=== PATIENT | female | born 1990 | race African-American/Black ===

== ENCOUNTER → 2022-09-10 | Outpatient (CLI) | payer OTHER ==
[2022-09-10 19:22] LABS: Luteinizing Hormone 6.4 mIU/mL
[2022-09-10 19:23] LABS: Progesterone 0.2 ng/mL; Thyroid Peroxidase Antibodies 9.8 U/mL (0.0-33.0)
== END | disposition home or self-care (01) ==
LOC: LABWHC1 10:53
PROVIDERS: ATTEND Midwife
DX: N92.1 Excessive and frequent menstruation with irregular cycle (principal)
CPT/HCPCS: 36415; 83001; 83002; 84144; 84146; 84403; 84443; 86376; 86800

== ENCOUNTER 2022-12-12 14:19 | Emergency (ER) | payer BC, OTHER ==
[2022-12-12 14:30] VITALS: TEMP 98.6
[2022-12-12] MEDS ORDERED: SODIUM CHLORIDE 0.9% 500 ML 500 ML IV ONE (14:50)
--- NOTE | 2022-12-12 14:58 | ED ---
Female Urogenital HPI - General Chief complaint: Vaginal Bleeding Stated complaint: 13 weeks preg-bleeding Time Seen by Provider: 12/12/22 14:32 Source: patient, RN notes reviewed, old records reviewed Mode of arrival: ambulatory Limitations: no limitations - History of Present Illness Initial comments: This is a 32-year-old female to the emergency department for evaluation. Patient does have prior history of miscarriage. Patient denies any current abdominal pain. Recent vaginal bleeding of patient believes she is around 13 weeks . MD Complaint: vaginal bleeding (With ) -: hour(s) Location: suprapubic Radiation: non-radiating Severity: mild Severity scale (1-10): 3 Improves with: none Worsens with: none Patient : Yes Associated Symptoms: vaginal bleeding, abdominal pain - Related Data Allergies Allergy/AdvReac Type Severity Reaction Status Date / Time No Known Allergies Allergy Verified 12/12/22 14:30 Review of Systems ROS Statement: Those systems with pertinent positive or pertinent negative responses have been documented in the HPI. ROS Other: All systems not noted in ROS Statement are negative. Past Medical History Past Medical History: No Reported History History of Any Multi-Drug Resistant Organisms: None Reported Additional Past Surgical History / Comment(s): D&C 08/2021 Past Psychological History: Depression Smoking Status: Never smoker Past Alcohol Use History: None Reported Past Drug Use History: None Reported General Exam General appearance: alert, in no apparent distress Head exam: Present: atraumatic, normocephalic, normal inspection Eye exam: Present: normal appearance, PERRL, EOMI. Absent: scleral icterus, conjunctival injection, periorbital swelling ENT exam: Present: normal exam, mucous membranes moist Neck exam: Present: normal inspection. Absent: tenderness, meningismus, lymphadenopathy Respiratory exam: Present: normal lung sounds bilaterally. Absent: respiratory distress, wheezes, rales, rhonchi, stridor Cardiovascular Exam: Present: regular rate, normal rhythm, normal heart sounds. Absent: systolic murmur, diastolic murmur, rubs, gallop, clicks GI/Abdominal exam: Present: soft, normal bowel sounds. Absent: distended, tenderness, guarding, rebound, rigid Extremities exam: Present: normal inspection, full ROM, normal capillary refill. Absent: tenderness, pedal edema, joint swelling, calf tenderness Back exam: Present: normal inspection Neurological exam: Present: alert, oriented X3, CN II-XII intact Psychiatric exam: Present: normal affect, normal mood Skin exam: Present: warm, dry, intact, normal color. Absent: rash Course Vital Signs 12/12/22 12/12/22 12/12/22 14:25 14:41 17:25 Temperature 98.6 F Pulse Rate 108 H 115 H 94 Respiratory 16 20 18 Rate Blood Pressure 143/91 130/77 O2 Sat by Pulse 100 99 99 Oximetry - Reevaluation(s) Reevaluation #1: 12/12/22 16:54 Record is reviewed Reevaluation #2: 12/12/22 16:55 Patient has no change in symptoms here in the ER Reevaluation #3: 12/12/22 16:55 Informed results and questions are answered Reevaluation #4: 12/12/22 16:55 Was pt. sent in by a medical professional or institution? @ -no Did you speak to anyone other than the patient for history? @ -no Did you review nursing and triage notes? @ -agree Were old charts reviewed? @ -no Differential Diagnosis? @ -prior EKG interpreted by me (3pts min.)? @ -yes X-rays interpreted by me (1pt min.)? @ -no CT interpreted by me (1pt min.)? @ -no U/S interpreted by me (1pt. min.)? @ -yes What testing was considered but not performed? (CT, X-rays, U/S, labs)? Why? @ -no What meds were considered but not given? Why? @ -no Did you discuss the management of the patient with other professionals? @ -no Did you reconcile home meds? @ -no Was smoking cessation discussed for >3mins.? @ -no Was critical care preformed (if so, how long)? @ -no Were there social determinants of health that impacted care today? How? (Homelessness, low income, unemployed, alcoholism, drug addiction, transportation, low edu. Level, literacy, decrease access to med. care, retirement, rehab)? @ -no Was there de-escalation of care discussed even if they declined? (Discuss DNR or withdrawal of care, Hospice)? @ -no What co-morbidities impacted this encounter? (DM, HTN, Smoking, COPD, CAD, Cancer, CVA, Hep., AIDS, mental health diagnosis, sleep apnea, morbid obesity)? @ -none Was patient admitted / discharged? @ - Undiagnosed new problem with uncertain prognosis? @ -no Drug Therapy requiring intensive monitoring for toxicity (Heparin, Nitro, Insulin, Cardizem)? @ -no Were any procedures done? @ -no Diagnosis/symptom? @ -32 female with vaginal bleeding in . Patient has normal ultrasound, positive blood type and can be discharged home Discharge Acute, or Chronic, or Acute on Chronic? @ -no Uncomplicated (without systemic symptoms) or Complicated (systemic symptoms)? @ -uncomplicated Side effects of treatment? @ -no Exacerbation, Progression, or Severe Exacerbation] @ -no Poses a threat to life or bodily function? @ -no Reevaluation #5: 12/12/22 16:55 Differential Abdominal Pain Women: Appendicitis, Cholecystitis, diverticulosis, ischemic bowel, pancreatitis, hepatitis, UTI, gastroenteritis, AAA, incarcerated hernia, bowel obstruction, constipation, inflammatory bowel, hepatitis, peptic ulcer disease, splenic infarction, perforated viscus, vulvitis, ovarian torsion, PID, kidney stone, placenta abruption, this is not meant to be an all-inclusive list Medical Decision Making - Medical Decision Making 32 female with vaginal bleeding in . Patient has normal ultrasound, positive blood type and can be discharged home - Lab Data Result diagrams: 12/12/22 14:57 12/12/22 14:57 Lab Results 12/12/22 12/12/22 12/12/22 Range/Units 14:57 14:57 14:57 WBC 12.2 H (3.8-10.6) k/uL RBC 4.48 (3.80-5.40) m/uL Hgb 12.3 (11.4-16.0) gm/dL Hct 35.6 (34.0-46.0) % MCV 79.4 L (80.0-100.0) fL MCH 27.5 (25.0-35.0) pg MCHC 34.7 (31.0-37.0) g/dL RDW 13.2 (11.5-15.5) % Plt Count 282 (150-450) k/uL MPV 8.0 Neutrophils % 62 % Lymphocytes % 30 % Monocytes % 4 % Eosinophils % 3 % Basophils % 0 % Neutrophils # 7.6 (1.3-7.7) k/uL Lymphocytes # 3.7 (1.0-4.8) k/uL Monocytes # 0.5 (0-1.0) k/uL Eosinophils # 0.3 (0-0.7) k/uL Basophils # 0.0 (0-0.2) k/uL Sodium (137-145) mmol/L Potassium (3.5-5.1) mmol/L Chloride (98-107) mmol/L Carbon Dioxide (22-30) mmol/L Anion Gap mmol/L BUN (7-17) mg/dL Creatinine (0.52-1.04) mg/dL Est GFR (CKD-EPI)AfAm (>60 ml/min/1.73 sqM) Est GFR (CKD-EPI)NonAf (>60 ml/min/1.73 sqM) Glucose (74-99) mg/dL Calcium (8.4-10.2) mg/dL Total Bilirubin (0.2-1.3) mg/dL AST (14-36) U/L ALT (4-34) U/L Alkaline Phosphatase (38-126) U/L Total Protein (6.3-8.2) g/dL Albumin (3.5-5.0) g/dL HCG, Quant mIU/mL Urine Color Yellow Urine Appearance Cloudy H (Clear) Urine pH 6.0 (5.0-8.0) Ur Specific [place] 1.021 (1.001-1.035) Urine Protein 1+ H (Negative) Urine Glucose (UA) Negative (Negative) Urine Ketones Trace H (Negative) Urine Blood Large H (Negative) Urine Nitrite Negative (Negative) Urine Bilirubin Negative (Negative) Urine Urobilinogen <2.0 (<2.0) mg/dL Ur Leukocyte Esterase Trace H (Negative) Urine RBC 4 (0-5) /hpf Urine WBC 6 H (0-5) /hpf Ur Squamous Epith Cells 2 (0-4) /hpf Amorphous Sediment Rare H (None) /hpf Urine Mucus Moderate H (None) /hpf Urine HCG, Qual Detected (Not Detectd) Blood Type Blood Type Recheck Bld Type Recheck Status 12/12/22 12/12/22 12/12/22 Range/Units 14:57 14:57 14:57 WBC (3.8-10.6) k/uL RBC (3.80-5.40) m/uL Hgb (11.4-16.0) gm/dL Hct (34.0-46.0) % MCV (80.0-100.0) fL MCH (25.0-35.0) pg MCHC (31.0-37.0) g/dL RDW (11.5-15.5) % Plt Count (150-450) k/uL MPV Neutrophils % % Lymphocytes % % Monocytes % % Eosinophils % % Basophils % % Neutrophils # (1.3-7.7) k/uL Lymphocytes # (1.0-4.8) k/uL Monocytes # (0-1.0) k/uL Eosinophils # (0-0.7) k/uL Basophils # (0-0.2) k/uL Sodium 135 L (137-145) mmol/L Potassium 3.9 (3.5-5.1) mmol/L Chloride 104 (98-107) mmol/L Carbon Dioxide 21 L (22-30) mmol/L Anion Gap 10 mmol/L BUN 10 (7-17) mg/dL Creatinine 0.64 (0.52-1.04) mg/dL Est GFR (CKD-EPI)AfAm >90 (>60 ml/min/1.73 sqM) Est GFR (CKD-EPI)NonAf >90 (>60 ml/min/1.73 sqM) Glucose 115 H (74-99) mg/dL Calcium 9.5 (8.4-10.2) mg/dL Total Bilirubin 0.4 (0.2-1.3) mg/dL AST 26 (14-36) U/L ALT 20 (4-34) U/L Alkaline Phosphatase 46 (38-126) U/L Total Protein 6.9 (6.3-8.2) g/dL Albumin 4.0 (3.5-5.0) g/dL HCG, Quant 55139.8 mIU/mL Urine Color Urine Appearance (Clear) Urine pH (5.0-8.0) Ur Specific [place] (1.001-1.035) Urine Protein (Negative) Urine Glucose (UA) (Negative) Urine Ketones (Negative) Urine Blood (Negative) Urine Nitrite (Negative) Urine Bilirubin (Negative) Urine Urobilinogen (<2.0) mg/dL Ur Leukocyte Esterase (Negative) Urine RBC (0-5) /hpf Urine WBC (0-5) /hpf Ur Squamous Epith Cells (0-4) /hpf Amorphous Sediment (None) /hpf Urine Mucus (None) /hpf Urine HCG, Qual (Not Detectd) Blood Type A Positive Blood Type Recheck No Previous Record Bld Type Recheck Status [facility] ONLY - Radiology Data Radiology results: report reviewed (Ultrasound pelvis is positive for IUP), image reviewed Disposition Clinical Impression: Threatened Disposition: HOME SELF-CARE Condition: Good Instructions (If sedation given, give patient instructions): Threatened Miscarriage (ED) Is patient prescribed a controlled substance at d/c from ED?: No Referrals: None,Stated [Primary Care Provider] - 1-2 days Time of Disposition: 17:00
[2022-12-12 15:08] LABS: Basophils % (A) 0 %; Eosinophils # (A) 0.3 k/uL (0-0.7); Eosinophils % (A) 3 %; HCT 35.6 % (34.0-46.0); HGB 12.3 gm/dL (11.4-16.0); Lymphocytes # (A) 3.7 k/uL (1.0-4.8); Lymphocytes % (A) 30 %; MCH 27.5 pg (25.0-35.0); MCHC 34.7 g/dL (31.0-37.0); MCV 79.4 fL (80.0-100.0); Monocytes # (A) 0.5 k/uL (0-1.0); Monocytes % (A) 4 %; Neutrophils # (A) 7.6 k/uL (1.3-7.7); Neutrophils % (A) 62 %; Platelet Count 282 k/uL (150-450); RBC 4.48 m/uL (3.80-5.40); RDW 13.2 % (11.5-15.5); WBC 12.2 k/uL (3.8-10.6)
[2022-12-12 15:17] LABS: ALT 20 U/L (4-34); AST 26 U/L (14-36); African American GFR (CKD) >90 (>60 ml/min/1.73 sqM); Alkaline Phosphatase 46 U/L (38-126); Anion Gap 10 mmol/L; Blood Urea Nitrogen 10 mg/dL (7-17); Calcium 9.5 mg/dL (8.4-10.2); Carbon Dioxide 21 mmol/L (22-30); Chloride 104 mmol/L (98-107); Glucose 115 mg/dL (74-99); Non-African American GFR(CKD) >90 (>60 ml/min/1.73 sqM); Potassium 3.9 mmol/L (3.5-5.1); Sodium 135 mmol/L (137-145); Total Bilirubin 0.4 mg/dL (0.2-1.3); Total Protein 6.9 g/dL (6.3-8.2)
[2022-12-12 17:09] LABS: Amorphous Sediment,Urine Rare /hpf; Appearance,Urine Cloudy (Clear); Bilirubin,Urine Negative (Negative); Blood,Urine Large (Negative); Color,Urine Yellow; Glucose,Urine (UA) Negative (Negative); Ketones,Urine Trace (Negative); Leukocyte Esterase,Urine Trace (Negative); Mucus,Urine Moderate /hpf; Nitrite,Urine Negative (Negative); Protein,Urine 1+ (Negative); RBC,Urine 4 /hpf (0-5); Specific Gravity,Urine 1.021 (1.001-1.035); Squamous Epithelial Cell,Urine 2 /hpf (0-4); Urobilinogen,Urine <2.0 mg/dL (<2.0); WBC,Urine 6 /hpf (0-5)
--- NOTE | 2022-12-12 17:11 | US ---
EXAMINATION TYPE: Transabdominal DATE OF EXAM: 12/12/2022 4:31 PM COMPARISON: NONE CLINICAL INDICATION: Female, 32 years old with history of pain; gush of blood yesterday, now brown alfreda kelly, mild cramping, A3 EXAM PERFORMED: OBTA EXAM MEASUREMENTS: GESTATIONAL AGE / DATING Physician Established: Not yet established Dates by LMP: (14 weeks/2 days) EDC: 06/10/2023 Dates by First Scan: No previous this is first scan Dates by Current Scan for: (13 weeks/1 days) EDC: 06/18/2023 MATERNAL ANATOMY Uterus: 13.2 x 10.0 x 5.9cm Right Ovary: 3.3 x 4.0 x 2.6cm Left Ovary: 3.0 x 3.2 x 2.5cm Post CDS / Adnexa: wnl Presence of free fluid: wnl Presence of corpus luteal cyst: right ovary = 1.5cm Presence of subchorionic bleed: no GESTATION / SURVEY CRL: 6.8cm (13 weeks/1 days) MSD: wnl Yolk Sac (normal less than 6mm): not seen Heart Rate: 160 bpm Rhythm: Normal IUP: Viable IUP Date of LMP: 09/03/2022 Beta HcG (if available): not available IMPRESSION: Single live intrauterine gestation with ultrasound age 13 weeks 1 day which is discordant with dates by last menstrual period of 14 weeks 2 days.
[2022-12-12 17:27] VITALS: BP 130/77; PULSE 94; RESP 18
== END 2022-12-12 17:36 | disposition home or self-care (01) ==
LOC: EC 14:19
DX: O20.0 Threatened abortion (principal); Z3A.13 13 weeks gestation of pregnancy
CPT/HCPCS: 36415; 76801; 80053; 81001; 81025; 84702; 85025; 86900; 86901; 99284

== ENCOUNTER 2023-06-15 06:35 | Inpatient (IN) | payer BC, OTHER ==
[2023-06-15] MEDS ORDERED: LIDOCAINE 0.5% (PF) 5 MG/ML (50 ML SDV) SQ PRN (06:52)
[2023-06-15] MEDS ORDERED: CARBOPROST TROMETHAMINE 250 MCG/ML 1 ML AMP IM PRN (06:52)
[2023-06-15] MEDS ORDERED: miSOPROStoL 200 MCG TAB PO PRN (06:52)
[2023-06-15] MEDS ORDERED: TRANEXAMIC 1,000 MG/100ML-NACL 1,000 MG in EMPTY BAG 1 BAG IV PRN (06:52)
[2023-06-15] MEDS ORDERED: TERBUTALINE 1 MG/ML VIAL SQ PRN (06:52)
[2023-06-15] MEDS ORDERED: OXYTOCIN 10 UNIT/ML 1 ML VIAL IM PRN (06:52)
[2023-06-15] MEDS ORDERED: METHYLERGONOVINE 0.2 MG/ML 1 ML AMP IM PRN (06:52)
[2023-06-15] MEDS ORDERED: OXYTOCIN 30 UNITS/500 ML NS 30 UNIT in SALINE 1 500ML.BAG IV SCH (07:00)
[2023-06-15] MEDS: LACTATED RINGERS 1,000 ML IV SCH ×3 (07:00→20:22)
[2023-06-15 07:13] LABS: Basophils % (A) 0 %; Eosinophils # (A) 0.1 k/uL (0-0.7); Eosinophils % (A) 1 %; HCT 36.1 % (34.0-46.0); HGB 12.4 gm/dL (11.4-16.0); Lymphocytes # (A) 3.6 k/uL (1.0-4.8); Lymphocytes % (A) 38 %; MCH 26.4 pg (25.0-35.0); MCHC 34.4 g/dL (31.0-37.0); MCV 76.8 fL (80.0-100.0); Mean Platelet Volume 11.4; Microcytosis Slight; Monocytes # (A) 0.5 k/uL (0-1.0); Monocytes % (A) 5 %; Neutrophils % (A) 53 %; RBC 4.71 m/uL (3.80-5.40); RDW 15.8 % (11.5-15.5); WBC 9.4 k/uL (3.8-10.6)
[2023-06-15 08:00] LABS: Large Platelets Present
[2023-06-15 08:01] LABS: Platelet Count 227 k/uL (150-450)
[2023-06-15 08:24] LABS: Glucose,Whole Blood 101 mg/dL (70-110)
--- NOTE | 2023-06-15 08:46 | P.HPOB ---
History of Present Illness H&P Date: 06/15/23 Chief Complaint: 39-0/7 weeks, elective induction The patient is a 32-year-old 4 para 0030 admitted at 39-0/7 weeks as established by a 6 week ultrasound. She is admitted for elective induction of labor with all signs reassuring, category 1 heart rate tracing. Her has been complicated by a fair amount of weight gain as well as gestational diabetes which ultimately required some insulin but has maintained blood sugars in the normal range. testing has been reassuring throughout. Group B strep status is negative. Obstetrical history: 4 para 0030 with 2 elective and 1 spontaneous Ab. Current statistics are listed in history of present illness. EDC of 06/22/2023 was established by 6 week ultrasound. Laboratory workup done traits of blood type of A+ with a negative antibody screen. Rubella status is nonimmune. The remainder of the laboratory workup was within normal limits. Early Glucola was significantly elevated making the diagnosis of gestational diabetes. Group B strep status is negative. Gynecologic history: Unremarkable with no history of any infections to include STDs. Review of Systems In view of systems is confined to history of present illness. Past Medical History Past Medical History: No Reported History Additional Past Medical History / Comment(s): Gestational Diabetes History of Any Multi-Drug Resistant Organisms: None Reported Additional Past Surgical History / Comment(s): D&C 08/2021, baloon sinopathy Past Anesthesia/Blood Transfusion Reactions: No Reported Reaction Past Psychological History: No Psychological Hx Reported, Depression Smoking Status: Never smoker Past Alcohol Use History: None Reported Past Drug Use History: None Reported Medications and Allergies Home Medications Medication Instructions Recorded Confirmed Type Aspirin 81 mg PO DAILY 06/15/23 06/15/23 History Insulin Aspart Scale Rx Form 06/15/23 History [NovoLOG Outpatient Scale Rx Form] Insulin Degludec [Tresiba] 06/15/23 History Vit No.179/Iron/Folic 1 each PO 06/15/23 History [ Tablet] Allergies Allergy/AdvReac Type Severity Reaction Status Date / Time No Known Allergies Allergy Verified 06/15/23 06:49 Exam Intake and Output 06/14/23 06/15/23 06/15/23 22:59 06:59 14:59 Other: Weight 122.47 kg General, this is a well-developed, well-nourished -[place] woman in no acute distress. Her heart has a regular rhythm and rate without murmur. Her lungs are clear to auscultation bilaterally in all starr. Her abdomen is gravid, nondistended, has normal active bowel sounds, soft, nontender, and without any palpable masses aside from the uterine fundus. Her extremities are without any cyanosis, clubbing, or significant edema and are nontender to palpation bilaterally. Digital cervical examination demonstrates her cervix to be approximate 1 cm dilated, 50% effaced, with the vertex in presentation at -3 station. I'm unable to safely carry out artificial rupture of membranes at this time. Results Result Diagrams: 06/15/23 07:04 Abnormal Lab Results - Last 24 Hours (Table) 06/15/23 Range/Units 07:04 MCV 76.8 L (80.0-100.0) fL RDW 15.8 H (11.5-15.5) % Assessment and Plan (1) Term Current Visit: Yes Status: Acute Code(s): Z34.90 - ENCNTR FOR SUPRVSN OF NORMAL , UNSP, UNSP TRIMESTER SNOMED Code(s): 38088374 (2) Gestational diabetes Current Visit: Yes Status: Acute Code(s): O24.419 - GESTATIONAL DIABETES MELLITUS IN , UNSP CONTROL SNOMED Code(s): 17227678 Plan: The patient is admitted for elective induction of labor. We do suspect macrosomia with growth greater than 90th percentile in the third t rimester. She has had Pitocin started and will undergo artificial rupture of membranes at the earliest possible time. She will have close maternal and surveillance and expectant management will be practiced. Blood sugars will be monitored as necessary. She is a good candidate for either IV, epidural, or nitrous analgesia, whichever she may choose.
[2023-06-15 09:19] LABS: Glucose,Whole Blood 96 mg/dL (70-110)
[2023-06-15 10:41] LABS: Glucose,Whole Blood 87 mg/dL (70-110)
[2023-06-15 13:43] LABS: Glucose,Whole Blood 84 mg/dL (70-110)
[2023-06-15 17:07] LABS: Glucose,Whole Blood 163 mg/dL (70-110)
[2023-06-15] MEDS ORDERED: DINOPROSTONE 10 MG INSERT.ER VAGINAL ONE (18:30)
--- NOTE | 2023-06-15 19:29 | P.PN ---
Subjective Progress Note Date: 06/15/23 Principal diagnosis: 39-0/7 weeks, induction Patient was admitted this morning for Pitocin induction with a relatively unfavorable cervix. She had Pitocin running through the midafternoon and failed to make any significant cervical change. Objective - Vital Signs Vital signs: Intake & Output 06/15/23 06/15/23 06/16/23 06:59 18:59 06:59 Intake Total 1000 Balance 1000 Weight 122.47 kg Intake: IV 1000 Other: # Voids 3 - Exam Digital cervical examination on throughout the day demonstrate a cervix that was 1 cm dilated, approximately 50% effaced, with the vertex in presentation at -3 station. I was never able to safely effect artificial rupture of membranes. heart tones remained category 1 throughout the day. - Labs CBC & Chem 7: 06/15/23 07:04 Labs: Abnormal Lab Results - Last 24 Hours (Table) 06/15/23 06/15/23 Range/Units 07:04 17:04 MCV 76.8 L (80.0-100.0) fL RDW 15.8 H (11.5-15.5) % POC Glucose (mg/dL) 163 H (70-110) mg/dL Assessment and Plan (1) Term Current Visit: Yes Status: Acute Code(s): Z34.90 - ENCNTR FOR SUPRVSN OF NORMAL , UNSP, UNSP TRIMESTER SNOMED Code(s): 04195064 (2) Gestational diabetes Current Visit: Yes Status: Acute Code(s): O24.419 - GESTATIONAL DIABETES MELLITUS IN , UNSP CONTROL SNOMED Code(s): 15273371 Plan: After spending most of the day on Pitocin with no significant cervical change or descent, the situation was discussed with the patient and her . We ran through several scenarios and opted to hold Pitocin induction and proceed with Cervidil cervical ripening overnight and resume Pitocin induction tomorrow. Cervidil has been placed in the posterior vaginal fornix per protocol. The patient is aware of the risks and complications of cervical ripening which are primarily for uterine hyperstimulation. She will have her blood sugars rechecked given her gestational diabetes with insulin as needed. She has taken her evening insulin doses.
[2023-06-15 21:49] LABS: Glucose,Whole Blood 160 mg/dL (70-110)
[2023-06-16] MEDS: NALBUPHINE 10 MG/ML (10 ML MDV) IV PRN ×2 (01:48→09:41)
[2023-06-16] MEDS: LACTATED RINGERS 1,000 ML IV SCH ×4 (06:30→22:05)
[2023-06-16 06:59] LABS: Glucose,Whole Blood 110 mg/dL (70-110)
[2023-06-16 08:46] LABS: Glucose,Whole Blood 110 mg/dL (70-110)
[2023-06-16] MEDS ORDERED: SODIUM CHLORIDE 0.9% 250 ML BAG ONE (11:29)
[2023-06-16] MEDS ORDERED: fentaNYL (PF) 50 MCG/ML 5 ML AMP ONE (11:29)
[2023-06-16] MEDS ORDERED: ROPIVACAINE 5 MG/ML 30 ML VIAL ONE (11:29)
[2023-06-16 14:26] LABS: Glucose,Whole Blood 67 mg/dL (70-110)
[2023-06-16 16:51] LABS: Glucose,Whole Blood 64 mg/dL (70-110)
[2023-06-16 19:10] LABS: Glucose,Whole Blood 82 mg/dL (70-110)
[2023-06-16] MEDS ORDERED: miSOPROStoL 200 MCG TAB PO PRN (19:36)
[2023-06-16] MEDS ORDERED: CITRIC ACID-SODIUM CITRATE 15 ML CUP PO ONE (19:36)
[2023-06-16] MEDS ORDERED: TRANEXAMIC 1,000 MG/100ML-NACL 1,000 MG in EMPTY BAG 1 BAG IV PRN (19:36)
[2023-06-16] MEDS ORDERED: CARBOPROST TROMETHAMINE 250 MCG/ML 1 ML AMP IM PRN (19:36)
[2023-06-16] MEDS ORDERED: OXYTOCIN 10 UNIT/ML 1 ML VIAL IM PRN (19:36)
[2023-06-16] MEDS ORDERED: METHYLERGONOVINE 0.2 MG/ML 1 ML AMP IM PRN (19:36)
[2023-06-16] MEDS ORDERED: ceFAZolin 3 GM in SODIUM CHLORIDE 0.9% 100 ML IVPB ONE (19:45)
[2023-06-16] MEDS ORDERED: fentaNYL (PF) 50 MCG/ML 2 ML AMP ONE (19:56)
[2023-06-16] MEDS ORDERED: ONDANSETRON 4 MG/2 ML VIAL ONE (19:56)
[2023-06-16] MEDS ORDERED: OXYTOCIN 30 UNITS/500 ML NS BAG IV ONE (19:56)
[2023-06-16] MEDS ORDERED: KETOROLAC 30 MG/ML 1 ML VIAL ONE (19:56)
[2023-06-16] MEDS ORDERED: METOCLOPRAMIDE 5 MG/ML 2 ML VIAL IVP PRN (20:47)
[2023-06-16] MEDS ORDERED: KETOROLAC 15 MG/ML 1 ML VIAL IVP PRN (20:47)
[2023-06-16] MEDS ORDERED: diphenhydrAMINE 50 MG CAP PO PRN (20:47)
[2023-06-16] MEDS ORDERED: LANOLIN CREAM 5 GM TUBE TOPICAL PRN (20:47)
[2023-06-16] MEDS ORDERED: diphenhydrAMINE 25 MG CAP PO PRN (20:47)
[2023-06-16] MEDS ORDERED: ZOLPIDEM 5 MG TAB PO PRN (20:47)
[2023-06-16] MEDS ORDERED: ONDANSETRON 4 MG/2 ML VIAL IVP PRN (20:47)
[2023-06-16] MEDS ORDERED: diphenhydrAMINE 50 MG/ML 1 ML VIAL IVP PRN ×2 (20:47)
[2023-06-16] MEDS ORDERED: NALOXONE 0.4 MG/ML 1 ML VIAL IV PRN (20:47)
--- NOTE | 2023-06-16 20:57 | P.OP ---
Date of Procedure: 06/16/23 Preoperative Diagnosis: #1. 39 and one sevenths weeks intrauterine #2. Gestational diabetes #3. Suspected macrosomia #4. Arrest of dilation and descent Postoperative Diagnosis: Same Procedure(s) Performed: #1. Primary low-transverse section Anesthesia: epidural Surgeon: Sanjay Ibarra Mechanical Integrity Specialist #1: Chey Sanders Estimated Blood Loss (ml): 568 IV fluids (ml): 900 Urine output (ml): 150 Pathology: none sent Condition: stable Disposition: floor Operative Findings: Preoperatively, the patient was initially admitted for induction yesterday and had Pitocin running for the majority of the day with no significant change in cervix and no ability to perform artificial rupture of membranes. The Pitocin was stopped and the patient had a Cervidil placed overnight which did ripen her cervix effectively allowing for rupture of membranes this morning at which time she was 2 cm dilated. Artificial rupture of membranes was clear fluid. She had Pitocin started and made progress to approximately 3-1/2 cm over the next hour or 2 and had an epidural catheter placed for analgesia. The head never descended below -3 station and she remained at 3-4 cm for the entirety of the day today with no descent of the head. Given the suspicion for macrosomia, the patient was counseled and agreed to undergo primary low- transverse section. She was taken the operating room where she was delivered of a viable 9 lbs. 15 oz. baby girl with Apgars of 9 at 1 minute and 9 at 5 minutes in the occiput anterior position. The placenta was delivered manually, intact, and grossly normal with a grossly normal three-vessel cord. The uterus, tubes, and ovaries were entirely normal to inspection though there were several small subserosal fibroids scattered over the uterine fundus. Description of Procedure: The patient was prepped and draped in usual fashion after epidural anesthesia was bolused by the anesthesiologist. A Pfannenstiel incision was made and extended into the abdominal cavity without difficulty. The bladder peritoneum was significantly distal to the intended site of incision and was left intact. An incision was made approximately 2 cm wide in the transverse plane of the lower uterine segment to reenter the uterus at which time clear fluid was again noted. The incision was extended in both directions using the bandage scissors. The head was delivered up and through the incision where the nose and mouth were thoroughly suctioned. The remainder of the was delivered onto the field where the cord was doubly clamped, cut, and the infant passed for resuscitative measures with weight and Apgars as noted above. A segment of cord was doubly clamped, cut, and set aside should cord gases become necessary. The placenta was delivered manually and intact as noted above. The uterus was exteriorized and the interior cavity of the uterus swept of any remaining placental or membranous fragments. The margins of the uterine incision were grasped with Montgomery clamps and the incision closed in 2 layers. The first layer was a running locking stitch of 0 chromic catgut followed by a running imbricating layer of 0 chromic catgut. Any small points of bleeding were made hemostatic with the Bovie. The posterior cul-de-sac was suctioned with a guard followed by laparotomy sponge and the uterine and ovarian findings were normal as above with several small fibroids over the fundus. The uterus was replaced within the abdominal cavity and the gutters swept of any remaining blood, fluid, or clot. Examination of the incision demonstrated some bleeding at the right angle which was made hemostatic with a [id number]-ticdy stitch of 0 chromic catgut. Any further small points of bleeding were made hemostatic with the Bovie. After ensuring adequate hemostasis, the parietal peritoneum was loosely reapproximated in the layer of muscles examined and found to be hemostatic. The fascia was closed with a single running stitch of 0 Vicryl proceeding from margin to margin. The subcutaneous tissues were irrigated, made hemostatic with the Bovie, and reapproximated with a running stitch of 30 plain catgut. The skin was reapproximated with a running subcuticular stitch of 4-0 Vicryl followed by half-inch Steri-Strips placed with Mastisol. Quantitative blood loss for the case was 568 mL. There were no complications. All sponge, instrument, and needle counts were correct. The patient tolerated the procedure well and proceeded to the recovery room in stable condition. Both mother and in herminia are resting comfortably in recovery.
[2023-06-16] MEDS ORDERED: OXYTOCIN 30 UNITS/500 ML NS 30 UNIT in SALINE 1 500ML.BAG IV SCH (21:00)
[2023-06-16 21:37] VITALS: RESP 16
[2023-06-16] MEDS: ACETAMINOPHEN TAB 500 MG TAB PO SCH (22:01)
[2023-06-16] MEDS ORDERED: MEASLES-MUMPS-RUBELLA VACC/PF 12,500 UNIT/0.5 ML VIAL SQ ONE (23:45)
[2023-06-17 00:44] LABS: Glucose,Whole Blood 117 mg/dL (70-110)
[2023-06-17] MEDS: IBUPROFEN 600 MG TAB PO SCH ×4 (05:54→20:44)
[2023-06-17] MEDS: LACTATED RINGERS 1,000 ML IV SCH ×2 (05:55→20:35)
[2023-06-17] MEDS: ACETAMINOPHEN TAB 500 MG TAB PO SCH ×3 (06:06→18:08)
[2023-06-17 06:27] LABS: Glucose,Whole Blood 105 mg/dL (70-110)
[2023-06-17 07:33] LABS: Basophils % (A) 0 %; Eosinophils # (A) 0.1 k/uL (0-0.7); Eosinophils % (A) 1 %; HCT 25.3 % (34.0-46.0); Lymphocytes # (A) 2.7 k/uL (1.0-4.8); Lymphocytes % (A) 22 %; MCH 26.9 pg (25.0-35.0); Mean Platelet Volume 12.1; Microcytosis Slight; Monocytes # (A) 0.6 k/uL (0-1.0); Monocytes % (A) 5 %; Neutrophils # (A) 8.7 k/uL (1.3-7.7); Neutrophils % (A) 71 %; Platelet Count 171 k/uL (150-450); RBC 3.29 m/uL (3.80-5.40); RDW 15.9 % (11.5-15.5); WBC 12.2 k/uL (3.8-10.6)
[2023-06-17 07:39] LABS: HGB 8.9 gm/dL (11.4-16.0)
[2023-06-17] MEDS: SENNOSIDES-DOCUSATE SODIUM 1 EACH TAB PO SCH ×2 (08:59→20:45)
--- NOTE | 2023-06-17 10:38 | P.PN ---
Progress Note - Text 06/17/23 601 am 32-year-old female status post . Patient had an epidural catheter which was bolused with Duramorph after the procedure for postop pain control. Patient was seen and evaluated, she has a VAS of 0 with no complaints of nausea vomiting
--- NOTE | 2023-06-17 11:03 | P.PNOBGPC ---
Subjective - Subjective Patient reports: Reports appetite normal, Reports voiding normally, Reports pain well controlled, Reports ambulating normally : doing well Objective - Vital Signs Latest vital signs: Vital Signs Temp Pulse Resp BP Pulse Ox 06/17/23 08:00 98.9 F 105 H 16 104/68 06/17/23 04:00 98.1 F 99 16 115/70 100 06/17/23 00:00 98.0 F 79 16 128/76 100 06/16/23 22:50 98.6 F 96 16 141/86 06/16/23 22:20 91 16 137/81 100 06/16/23 21:50 94 16 137/81 100 06/16/23 21:35 93 16 140/78 100 06/16/23 21:20 88 16 126/74 97 06/16/23 21:05 85 16 140/77 97 06/16/23 20:50 98.1 F 88 16 137/91 100 Intake and Output 06/16/23 06/17/23 06/17/23 22:59 06:59 14:59 Output Total 1056 400 Balance -1056 -400 Output: Urine 200 400 Uretheral (Crook) 400 Output, Quantitative 856 Blood Loss Other: Voiding Method Indwelling Catheter Indwelling Catheter # Voids 3 0 - Exam Extremities: Present: normal Abdomen: Present: normal appearance, soft. Absent: distention, tenderness Incision: Present: normal, dry, intact Uterus: Present: normal, firm (The uterine fundus is tonic and minimally tender below the umbilicus.) - Labs Labs: Abnormal Lab Results - Last 24 Hours (Table) 06/16/23 06/16/23 06/17/23 Range/Units 14:25 16:49 00:43 WBC (3.8-10.6) k/uL RBC (3.80-5.40) m/uL Hgb (11.4-16.0) gm/dL Hct (34.0-46.0) % MCV (80.0-100.0) fL RDW (11.5-15.5) % Neutrophils # (1.3-7.7) k/uL POC Glucose (mg/dL) 67 L 64 L 117 H (70-110) mg/dL 06/17/23 Range/Units 07:20 WBC 12.2 H (3.8-10.6) k/uL RBC 3.29 L (3.80-5.40) m/uL Hgb 8.9 L D (11.4-16.0) gm/dL Hct 25.3 L (34.0-46.0) % MCV 77.0 L (80.0-100.0) fL RDW 15.9 H (11.5-15.5) % Neutrophils # 8.7 H (1.3-7.7) k/uL POC Glucose (mg/dL) (70-110) mg/dL Assessment and Plan (1) Term Current Visit: Yes Status: Acute Code(s): Z34.90 - ENCNTR FOR SUPRVSN OF NORMAL , UNSP, UNSP TRIMESTER SNOMED Code(s): 01678925 (2) Gestational diabetes Current Visit: Yes Status: Acute Code(s): O24.419 - GESTATIONAL DIABETES MELLITUS IN , UNSP CONTROL SNOMED Code(s): 96981322 (3) S/P section Current Visit: Yes Status: Acute Code(s): Z98.891 - HISTORY OF UTERINE SCAR FROM PREVIOUS SURGERY SNOMED Code(s): 501009153 Plan: Continue routine and postoperative care. I have encouraged the patient and the hallways routinely. She is otherwise tolerating regular diet and performing activities of daily living. I would anticipate discharge home tomorrow pending no complications.
[2023-06-17 17:46] VITALS: TEMP 98
[2023-06-18] MEDS: ACETAMINOPHEN TAB 500 MG TAB PO SCH ×3 (00:05→11:51)
[2023-06-18 02:54] VITALS: PULSE 97
[2023-06-18] MEDS: IBUPROFEN 600 MG TAB PO SCH ×3 (03:16→15:09)
[2023-06-18 08:49] VITALS: BP 127/74
[2023-06-18] MEDS: SENNOSIDES-DOCUSATE SODIUM 1 EACH TAB PO SCH (09:12)
--- NOTE | 2023-06-18 10:18 | P.DS ---
Providers Date of admission: 06/15/23 06:35 Expected date of discharge: 06/18/23 Attending physician: Sanjay Ibarra Primary care physician: Stated None - Discharge Diagnosis(es) (1) Arrest of descent, delivered, current hospitalization Current Visit: Yes Status: Acute (2) macrosomia in Current Visit: Yes Status: Acute (3) Gestational diabetes Current Visit: Yes Status: Acute (4) S/P section Current Visit: Yes Status: Acute (5) Term Current Visit: Yes Status: Acute Hospital Course: This is a 32 year old 4 now para 1031 woman admitted at 39 weeks gestation for induction of labor secondary to insulin requiring gestational diabetes and suspected macrosomia. Following admission she underwent a Pitocin induction of labor. This was continued for several hours with no signs of active labor. Pitocin was therefore stopped and Cervidil was introduced. Following morning Pitocin was reinitiated and artificial rupture of membranes was undertaken. She did receive an epidural anesthetic. She however did not have any further ongoing descent or dilatation and ultimately underwent a primary low transverse section. Findings at the time of surgery significant for a 9 lbs. 15 oz. female infant with Apgars of 9 at 1 minute and 9 at 5 minutes. Please see the operative report for details. The patient's postoperative course was unremarkable. By postoperative day #1 she did have some postoperative anemia with a hemoglobin of 8.9. She had decreasing lochia and was able to ambulate and void without difficulty. By postoperative day #2 she continued to do well. Her blood sugars were within normal range as were her blood pressures. She was tolerating a general diet and her pain was well- controlled with oral pain medications. Her incision appeared well healing. She was therefore discharged home with routine instructions for postoperative care and follow-up. Procedures: Primary low transverse section Patient Condition at Discharge: Good Plan - Discharge Summary New Discharge Prescriptions: New Ibuprofen [Motrin] 600 mg PO Q6H tab oxyCODONE HCL [OxyIR] 10 mg PO Q6H PRN 7 Days #28 tab PRN Reason: Pain Scale 7 - 10 Sennosides-Docusate Sodium [Senokot-S] 2 each PO BID@0800,2000 tab Acetaminophen Tab [Tylenol] 1,000 mg PO Q6H tab Discontinued Insulin Degludec [Tresiba] Insulin Aspart Scale Rx Form [NovoLOG Outpatient Scale Rx Form] No Action Vit No.179/Iron/Folic [ Tablet] 1 each PO Aspirin 81 mg PO DAILY Discharge Medication List Aspirin 81 mg PO DAILY 06/15/23 [History] Vit No.179/Iron/Folic [ Tablet] 1 each PO 06/15/23 [History] Acetaminophen Tab [Tylenol] 1,000 mg PO Q6H tab 06/18/23 [Rx] Ibuprofen [Motrin] 600 mg PO Q6H tab 06/18/23 [Rx] Sennosides-Docusate Sodium [Senokot-S] 2 each PO BID@0800,2000 tab 06/18/23 [Rx] oxyCODONE HCL [OxyIR] 10 mg PO Q6H PRN 7 Days #28 tab 06/18/23 [Rx] Follow up Appointment(s)/Referral(s): Sanjay Ibarra MD [STAFF PHYSICIAN] - 1 Week Activity/Diet/Wound Care/Special Instructions: Follow-up in 2 weeks after surgery in the office. Call the office with any concerning signs or symptoms including fever greater than 101, severe abdominal pain, heavy vaginal bleeding, signs of wound infection, increased swelling or redness of the lower extremities, signs of depression. No driving for 2 weeks after surgery. No heavy lifting or vigorous activity until reevaluated in the office. No intercourse for 6 weeks after delivery. Discharge Disposition: HOME SELF-CARE
--- NOTE | 2023-06-23 10:46 | CDI ---
Documentation Clarification Form Date: 06/23/2023 09:54:30 AM From: Brittani Hines Admit Date: 06/15/2023 06:35:00 AM Patient Name: Joseline Ruiz Visit Number: [id number] Discharge Date: 06/18/2023 03:58:00 PM ATTENTION: The Clinical Documentation Specialists (CDI) and [facility] Coding Staff appreciate your assistance in clarifying documentation. Please respond to the clarification below the line at the bottom and electronically sign. The CDI & [facility] Coding staff will review the response and follow-up if needed. Please note: Queries are made part of the Legal Health Record. If you have any questions, please contact the author of this message via ITS. Dr. Sanjay Ibarra Postoperative anemia is documented in the discharge summary 06/[address] Bobby. Additional specificity regarding the type and acuity of anemia is requested. History/Risk Factors: patient is a 32 year old 4 para 1031 admitted at 39 weeks gestation for induction of labor secondary to insulin requiring gestational diabetes and suspected macrosomia. Clinical indicators: patient underwent a Pitocin induction of labor, then proceeded with Cervidil. Pitocin was again reinitiated followed by AROM and Epidural. She failed to have any further ongoing descent or dilation and ultimately underwent a primary low transverse C/S. EBL 568 mL. No complications, she did have some postoperative anemia with a hemoglobin of 8.9. She had decreasing lochia and continued to do well. Hemoglobin: 06/15 12.4, 06/17 8.9 Hematocrit: 06/15 36.1, 06/17 25.3 Treatment: routine and postoperative care Please clarify the type and acuity of anemia: [ ] Acute blood loss anemia [ x ] Not clinically significant [ ] Unable to determine [ ] Other, please specify _Every delivery will have this type of blood loss and these queries aren't necessary in this particular scenario. MTDD
== END 2023-06-18 15:58 | disposition home or self-care (01) | DRG 788 ==
LOC: 4FBP 06:35
PROVIDERS: ADMIT Obstetrics & Gynecology; ATTEND Obstetrics & Gynecology
PROC: 10D00Z1 Extraction of Products of Conception, Low, Open Approach (ICD-10-PCS; principal; 2023-06-16 20:26)
DX: O24.424 Gestational diabetes mellitus in childbirth, insulin controlled (principal); D25.2 Subserosal leiomyoma of uterus; O34.13 Maternal care for benign tumor of corpus uteri, third trimester; O36.63X0 Maternal care for excessive fetal growth, third trimester, not applicable or unspecified; O62.1 Secondary uterine inertia; O99.02 Anemia complicating childbirth; Z37.0 Single live birth; Z3A.39 39 weeks gestation of pregnancy; Z79.82 Long term (current) use of aspirin
CPT/HCPCS: 85025; 86850; 86900; 86901

== ENCOUNTER → 2023-09-07 | Outpatient (CLI) | payer BC | END | disposition home or self-care (01) | LOC: LABWHC1 13:00 | PROVIDERS: ATTEND Internal Medicine Endocrinology, Diabetes & Metabolism | DX: E11.9 Type 2 diabetes mellitus without complications (principal) | CPT/HCPCS: 36415; 83036 ==

== ENCOUNTER → 2024-03-28 | Outpatient (CLI) | payer BC ==
[2024-03-28 22:35] LABS: ALT 16 U/L (8-44); AST 17 U/L (13-35); Albumin 4.2 g/dL (3.8-4.9); Albumin/Globulin Ratio 1.75 Ratio (1.60-3.17); Alkaline Phosphatase 67 U/L (41-126); BUN/Creat Ratio 12.62 Ratio (12.00-20.00); Blood Urea Nitrogen 10.1 mg/dL (9.0-27.0); Calcium 9.4 mg/dL (8.7-10.3); Carbon Dioxide 21.5 mmol/L (21.6-31.8); Chloride 102 mmol/L (96-109); Chol/HDL Ratio 2.72 Ratio; Globulin 2.4 g/dL (1.6-3.3); Glucose 143 mg/dL (70-110); LDL Cholesterol,Calculated 97.2 mg/dL (0.0-131.0); Potassium 4.5 mmol/L (3.5-5.5); Sodium 135 mmol/L (135-145); Total Bilirubin 0.4 mg/dL (0.3-1.2); Total Protein 6.6 g/dL (6.2-8.2)
== END | disposition home or self-care (01) ==
LOC: LABWHC1 10:21
PROVIDERS: ATTEND Internal Medicine Endocrinology, Diabetes & Metabolism
DX: E11.9 Type 2 diabetes mellitus without complications (principal)
CPT/HCPCS: 36415; 80053; 80061; 82043; 82570; 83036; 84443

== ENCOUNTER 2024-11-02 10:10 | Inpatient (IN) | payer BC ==
[2024-11-02 10:23] LABS: Glucose,Whole Blood 100 mg/dL (70-110)
[2024-11-02] MEDS ORDERED: OXYTOCIN 30 UNITS/500 ML NS 30 UNIT in SALINE 1 500ML.BAG IV SCH (10:45)
[2024-11-02] MEDS ORDERED: METHYLERGONOVINE 0.2 MG/ML 1 ML AMP IM PRN (10:45)
[2024-11-02] MEDS ORDERED: TRANEXAMIC 1,000 MG/100ML-NACL 1,000 MG in EMPTY BAG 1 BAG IV PRN (10:45)
[2024-11-02] MEDS ORDERED: miSOPROStoL 200 MCG TAB PO PRN (10:45)
[2024-11-02] MEDS ORDERED: CARBOPROST TROMETHAMINE 250 MCG/ML 1 ML AMP IM PRN (10:45)
[2024-11-02] MEDS ORDERED: OXYTOCIN 10 UNIT/ML 1 ML VIAL IM PRN (10:45)
--- NOTE | 2024-11-02 10:59 | P.HPOB ---
History of Present Illness H&P Date: 11/02/24 Chief Complaint: 38+ weeks, previous section, GDM, repeat The patient is a 34-year-old 5 para 1-0-3-1 admitted at 38+ weeks as established by an 11-week ultrasound. She is admitted for repeat low-transverse section having undergone a previous section. Her has been complicated by gestational diabetes and possibly pregestational diabetes she has had reassuring testing on a weekly basis since 32 weeks. She is known to have a large for gestational age fetus. She has also been found to be rubella nonimmune. Group B strep status is negative. On labor delivery, all signs are reassuring with a category 1 heart rate tracing. Obstetrical history: 5 para 1-0-3-1 with 1 term section as noted above. Current statistics are listed in history of present illness. EDC of 11/13/2024 was established by an 11-week ultrasound. Laboratory workup demonstrates a blood type of A+ with a negative antibody screen. Rubella status is nonimmune. The remainder of the laboratory workup was within normal limits. The patient was treated as a diabetic throughout the as she was thought to be pregestational a diabetic. Group B strep status is negative. Gynecologic history: Unremarkable with no history of any infections to include STDs. Review of Systems Review of systems is confined to history of present illness. Past Medical History Past Medical History: No Reported History Additional Past Medical History / Comment(s): Gestational Diabetes History of Any Multi-Drug Resistant Organisms: None Reported Additional Past Surgical History / Comment(s): D&C 08/2021, baloon sinopathy Past Anesthesia/Blood Transfusion Reactions: No Reported Reaction Past Psychological History: No Psychological Hx Reported, Depression Smoking Status: Never smoker Past Alcohol Use History: None Reported Past Drug Use History: None Reported Medications and Allergies Home Medications Medication Instructions Recorded Confirmed Type Aspirin 81 mg PO DAILY 06/15/23 11/02/24 History Vit No.179/Iron/Folic 1 each PO DAILY 06/15/23 11/02/24 History [ Tablet] Acetaminophen Tab [Tylenol] 1,000 mg PO Q6H tab 06/18/23 11/02/24 Rx Insulin Aspart [NovoLOG] 10 - 14 units SQ ACHS 11/02/24 11/02/24 History Insulin Degludec [Tresiba] 20 - 40 units SQ DAILY 11/02/24 11/02/24 History Allergies Allergy/AdvReac Type Severity Reaction Status Date / Time No Known Allergies Allergy Verified 11/02/24 10:36 Exam Intake and Output 11/01/24 11/02/24 11/02/24 22:59 06:59 14:59 Other: Weight 130.181 kg In general, this is a well-developed black female in no acute distress. Her heart has a regular rhythm and rate without murmur. Her lungs are clear to auscultation bilateral in all starr. Her abdomen is gravid, nondistended, has normal active bowel sounds, soft, nontender, and without any palpable masses aside from uterine fundus. Her extremities are without any cyanosis, clubbing, or significant edema and are nontender to palpation bilaterally. Digital cervical examination is deferred. Assessment and Plan (1) Previous section Current Visit: Yes Status: Acute Code(s): Z98.891 - HISTORY OF UTERINE SCAR FROM PREVIOUS SURGERY SNOMED Code(s): 130924799 (2) macrosomia in Current Visit: No Status: Acute Code(s): O36.60X0 - MATERNAL CARE FOR EXCESS GROWTH, UNSP TRIMESTER, UNSP SNOMED Code(s): 06893067 (3) Gestational diabetes Current Visit: No Status: Acute Code(s): O24.419 - GESTATIONAL DIABETES MELLITUS IN , UNSP CONTROL SNOMED Code(s): 38357487 (4) Term Current Visit: No Status: Acute Code(s): Z34.90 - ENCNTR FOR SUPRVSN OF NORMAL , UNSP, UNSP TRIMESTER SNOMED Code(s): 87133854 Plan: The patient is admitted for repeat low-transverse section. The risks and complications have been discussed and she has understood and agreed to proceed.
[2024-11-02] MEDS: CITRIC ACID-SODIUM CITRATE 15 ML CUP PO ONE (11:07)
[2024-11-02] MEDS: LACTATED RINGERS 1,000 ML IV SCH (11:07)
[2024-11-02] MEDS: ceFAZolin 3 GM in SODIUM CHLORIDE 0.9% 100 ML IVPB ONE (11:12)
[2024-11-02 11:29] LABS: Basophils # (A) 0.02 10*3/uL (0.00-0.10); Basophils % (A) 0.2 %; Eosinophils # (A) 0.08 10*3/uL (0.04-0.35); Eosinophils % (A) 0.8 %; HCT 36.8 % (37.2-46.3); HGB 12.6 g/dL (12.0-15.0); Lymphocytes % (A) 24.4 %; MCH 25.7 pg (27.0-32.0); MCHC 34.2 g/dL (32.0-37.0); MCV 74.9 fL (80.0-97.0); Monocytes # (A) 0.65 10*3/uL (0.20-1.00); Monocytes % (A) 6.3 %; Neutrophils # (A) 6.95 10*3/uL (1.80-7.70); Neutrophils % (A) 67.8 %; Platelet Count 233 10*3/uL (140-440); RBC 4.91 10*6/uL (4.10-5.20); RDW 16.4 % (11.5-14.5); WBC 10.25 10*3/uL (4.50-10.00)
[2024-11-02] MEDS ORDERED: NALBUPHINE (ANES) 10 MG/ML - 1 ML AMP ONE (11:29)
[2024-11-02] MEDS ORDERED: MORPHINE SULFATE (PF) 0.3 MG/0.3 ML SYR ONE (11:29)
[2024-11-02] MEDS ORDERED: KETOROLAC 15 MG/ML 1 ML VIAL ONE (11:29)
[2024-11-02] MEDS ORDERED: ONDANSETRON 4 MG/2 ML VIAL ONE (11:29)
[2024-11-02] MEDS ORDERED: LANOLIN CREAM 1 GM TUBE TOPICAL PRN (12:22)
[2024-11-02] MEDS ORDERED: NALOXONE 0.4 MG/ML 1 ML VIAL IV PRN (12:22)
[2024-11-02] MEDS ORDERED: ONDANSETRON 4 MG/2 ML VIAL IVP PRN (12:22)
[2024-11-02] MEDS ORDERED: diphenhydrAMINE 50 MG/ML 1 ML VIAL IVP PRN ×2 (12:22)
[2024-11-02] MEDS ORDERED: ZOLPIDEM 5 MG TAB PO PRN (12:22)
[2024-11-02] MEDS ORDERED: METOCLOPRAMIDE 5 MG/ML 2 ML VIAL IVP PRN (12:22)
--- NOTE | 2024-11-02 12:32 | P.OP ---
Date of Procedure: 11/02/24 Preoperative Diagnosis: #1. 38-3/7 weeks, previous section #2. Gestational diabetes #3. Suspected macrosomia Postoperative Diagnosis: Same Procedure(s) Performed: #1. Repeat low-transverse section #2. Excision and revision of scar Anesthesia: spinal Surgeon: Sanjay Ibarra Finish Off Operator #1: Emma Garrido Estimated Blood Loss (ml): 512 IV fluids (ml): 1,000 Urine output (ml): 100 Pathology: none sent Condition: stable Disposition: floor Operative Findings: Patient was taken to the operating room where she was delivered in an uncomplicated fashion of a viable 10 pound 2 ounce baby girl with Apgars of 9 at 1 minute and 9 at 5 minutes delivered in the occiput anterior position. The placenta was delivered manually, intact, and grossly normal with a grossly normal three-vessel cord. The uterus, tubes, and ovaries were entirely normal to inspection. At the onset of the case, there was a large keloid scar from her previous incision which was excised and discarded. Description of Procedure: Was prepped and draped in usual fashion after spinal anesthesia was administered by the anesthesiologist. A Pfannenstiel incision was made underneath the pre- existing scar allowing the overlying keloid to be excised with a scalpel. The incision was then extended into the abdominal cavity without difficulty. The bladder peritoneum was significantly distal to the intended site of incision and was left intact. A 2 cm incision was made in the transverse plane of the lower uterine segment to enter the uterus at which time clear fluid was noted. The incision was extended both directions using the bandage scissors. The head was delivered up and through the incision where the nose and mouth were thoroughly suctioned. The remainder of the infant was delivered onto the field where the cord was doubly clamped, cut, and the infant passed for resuscitative measures with weight and Apgars as noted above. The placenta was delivered manually and intact as noted above. The uterus was exteriorized and the anterior cavity uterus swept of any remaining placental or membranous fragments. The margins of the uterine incision were grasped with Montgomery clamps. The incision was closed in a single running locking stitch of 0 chromic catgut from margin to margin. 1 small point of bleeding was noted in the midline where a sinus had been previously noted and was made hemostatic with a single afqfbb-os-pbolk stitch of 0 chromic catgut. The posterior cul-de-sac was suctioned with a guard followed by laparotomy sponge. The uterine and ovarian findings were normal as noted above. The uterus was replaced within the abdominal cavity and the gutters swept with any remaining blood, fluid, or clot. Reexamination of the uterine incision demonstrated excellent hemostasis. The parietal peritoneum was loosely reapproximated and the layer of muscles examined and found to be hemostatic. The fascia was closed with a single running stitch of 0 Vicryl proceeding from margin to margin. The subcutaneous tissues were irrigated, made hemostatic with the Bovie, and then reapproximated with a running stitch of 3-0 plain catgut. The skin was reapproximated with a running subcuticular stitch of 4-0 Monocryl followed by half-inch Steri-Strips placed with Mastisol. Quantitative blood loss for the case was 512 mL. There were no complications. All sponge, instrument, and needle counts were correct. The patient tolerated the procedure well and proceeded to the recovery room in stable condition. Both mother and infant are resting comfortably in recovery. A physician instructor adjunct surgical technician was utilized for the entire procedure due to the need for tissue retraction, dissection of vital structures, prevention and management of blood loss, and reduction in total operative time and anesthesia time as is the standard of care.
[2024-11-02] MEDS: ACETAMINOPHEN TAB 500 MG TAB PO SCH (17:13)
[2024-11-02] MEDS: KETOROLAC 15 MG/ML 1 ML VIAL IVP SCH (20:09)
[2024-11-02] MEDS: SENNOSIDES-DOCUSATE SODIUM 1 EACH TAB PO SCH (20:11)
[2024-11-02] MEDS: diphenhydrAMINE 25 MG CAP PO PRN (22:05)
[2024-11-03 06:25] LABS: Basophils # (A) 0.03 10*3/uL (0.00-0.10); Basophils % (A) 0.2 %; Eosinophils # (A) 0.17 10*3/uL (0.04-0.35); Eosinophils % (A) 1.4 %; HCT 29.2 % (37.2-46.3); HGB 10.3 g/dL (12.0-15.0); Lymphocytes # (A) 3.43 10*3/uL (0.90-5.00); Lymphocytes % (A) 27.9 %; MCH 26.7 pg (27.0-32.0); MCHC 35.3 g/dL (32.0-37.0); MCV 75.6 fL (80.0-97.0); Mean Platelet Volume 12.4 fL (9.5-12.2); Monocytes # (A) 0.98 10*3/uL (0.20-1.00); Neutrophils # (A) 7.65 10*3/uL (1.80-7.70); Neutrophils % (A) 62.1 %; Platelet Count 197 10*3/uL (140-440); RBC 3.86 10*6/uL (4.10-5.20); WBC 12.31 10*3/uL (4.50-10.00)
[2024-11-03] MEDS: diphenhydrAMINE 50 MG CAP PO PRN (08:00)
--- NOTE | 2024-11-03 08:24 | P.PNOBGPC ---
Subjective - Subjective Principal diagnosis: s/p scheduled repeat section Interval history: The patient is doing well this morning and had no acute events overnight. She has no complaints this morning. She reports minimal lochia, passing flatus, voiding without difficulty, ambulating, and eating/drinking without nausea or vomiting. She is her without difficulty. She denies chest pain, shortness of breathing, fevers, or chills overnight. She denies pain or swelling in the legs. The patient does complain of itching from the duramorph. Patient reports: Reports appetite normal, Reports voiding normally, Reports pain well controlled, Reports ambulating normally : doing well, nursing well Objective - Vital Signs Latest vital signs: Vital Signs Temp Pulse Resp BP Pulse Ox 11/03/24 00:00 98 F 72 18 132/78 98 11/02/24 20:00 97.8 F 67 18 113/77 98 11/02/24 15:44 95.7 F L 75 16 121/68 98 11/02/24 14:28 95.8 F L 78 18 132/71 98 11/02/24 14:13 95.8 F L 79 18 122/99 98 11/02/24 13:58 95.8 F L 83 16 131/68 98 11/02/24 13:43 79 18 124/72 98 11/02/24 13:28 96.1 F L 78 18 124/70 98 11/02/24 13:13 95.6 F L 96 16 110/62 97 11/02/24 12:58 90 18 113/63 11/02/24 12:43 80 18 108/59 98 11/02/24 12:28 95.6 F L 84 16 102/51 97 11/02/24 10:22 95.5 F L 105 H 20 140/91 100 Intake and Output 11/02/24 11/03/24 11/03/24 22:59 06:59 14:59 Output Total 200 Balance -200 Output: Urine 200 Uretheral (Crook) 200 Other: Voiding Method Indwelling Catheter # Voids 1 - Exam Extremities: Present: normal Abdomen: Present: normal appearance, soft Incision: Present: normal, dry, dressed Uterus: Present: normal, firm - Labs Labs: Abnormal Lab Results - Last 24 Hours (Table) 11/02/24 11/03/24 Range/Units 10:52 06:13 WBC 10.25 H 12.31 H (4.50-10.00) 10*3/uL RBC 3.86 L (4.10-5.20) 10*6/uL Hgb 10.3 L (12.0-15.0) g/dL Hct 36.8 L 29.2 L (37.2-46.3) % MCV 74.9 L 75.6 L (80.0-97.0) fL MCH 25.7 L 26.7 L (27.0-32.0) pg MPV 12.4 H (9.5-12.2) fL Immature Gran # 0.05 H 0.05 H (0.00-0.04) 10*3/uL Immature Plt Fraction 8.0 H (1.1-6.1) % Assessment and Plan Assessment: 34 year old now POD#1 s/p scheduled repeat section Plan: 1. Postoperative. Patient meeting all post-operative milestones appropriately. 2. Viable female infant. Doing well at bedside, nursing well. Dispo: Anticipate discharge home tomorrow.
--- NOTE | 2024-11-03 09:42 | P.PN ---
Progress Note - Text Progress Note Date: 11/03/24 (716) Anesthesia Postop day 1 Subjective: Status Post section with Duramorph. Patient seen and examined. Doing well without complaint. VAS 8 out of 10. States tolerable. No nausea or vomiting. Moderate pruritus. Denies fever. Gross lower extremity strength intact. Without apparent anesthetic complications. Objective: Vital signs reviewed Heart: Regular Rate Lungs: Good chest excursion Abdomen: Appears nondistended Assessment: Status post section with Duramorph postop day 1 Plan: 1. Continue current care with your medical management. Anticipated end to the duration of the Duramorph around surgery time today. You may see increased pain needs around this time. 2. This note was dictated using ImageBrief software. Please be advised there is a potential for misspellings or errors in paving crew foreman.
[2024-11-03] MEDS: IBUPROFEN 800 MG TAB PO SCH (19:43)
[2024-11-04] MEDS: SIMETHICONE 80 MG CHEWABLE PO PRN (02:35)
[2024-11-04 09:21] VITALS: BP 148/84; PULSE 98; RESP 20; TEMP 98.2
--- NOTE | 2024-11-04 09:38 | P.DS ---
Providers Date of admission: 11/02/24 10:10 Expected date of discharge: 11/04/24 Attending physician: Sanjay Ibarra Primary care physician: Stated None Hospital Course: Ms. Ruiz is a 34 year old now POD#2 s/p scheduled repeat section. The patient is doing well this morning and had no acute events overnight. She has no complaints this morning. She reports minimal lochia, passing flatus, voiding without difficulty, ambulating, and eating/drinking without nausea or vomiting. Infant doing well at bedside. She denies chest pain, shortness of breathing, fevers, or chills overnight. She denies pain or swelling in the legs. Postoperative restrictions are reviewed with the patient including pelvic rest for 6 weeks, no lifting heavier than 15 pounds for 6 weeks. The patient is encouraged to call the office if she experiences any heavy bleeding, foul-smelling discharge, breast complaints, or any if she has any other concerns. She will follow up in the office with Dr. Ibarra in 2 weeks for postoperative exam. She will go home with 3-days worth of Oxycodone as well as Motrin and Tylenol. All questions are answered. Patient Condition at Discharge: Good Plan - Discharge Summary New Discharge Prescriptions: New Ibuprofen [Motrin] 600 mg PO Q6HR PRN #30 tab PRN Reason: Mild Pain (Scale 1 To 3) oxyCODONE HCL [Roxicodone] 5 mg PO Q6HR PRN 3 Days #12 tab PRN Reason: Breakthrough Pain Acetaminophen Tab [Tylenol] 650 mg PO Q6H PRN #30 tab PRN Reason: Mild Pain (Scale 1 To 3) Docusate [Colace] 100 mg PO BID PRN #60 capsule PRN Reason: Constipation No Action Vit No.179/Iron/Folic [ Tablet] 1 each PO DAILY Aspirin 81 mg PO DAILY Acetaminophen Tab [Tylenol] 1,000 mg PO Q6H tab Insulin Aspart [NovoLOG] 10 - 14 units SQ ACHS Insulin Degludec [Tresiba] 20 - 40 units SQ DAILY Discharge Medication List Aspirin 81 mg PO DAILY 06/15/23 [History] Vit No.179/Iron/Folic [ Tablet] 1 each PO DAILY 06/15/23 [History] Acetaminophen Tab [Tylenol] 1,000 mg PO Q6H tab 06/18/23 [Rx] Insulin Aspart [NovoLOG] 10 - 14 units SQ ACHS 11/02/24 [History] Insulin Degludec [Tresiba] 20 - 40 units SQ DAILY 11/02/24 [History] Acetaminophen Tab [Tylenol] 650 mg PO Q6H PRN #30 tab 11/04/24 [Rx] Docusate [Colace] 100 mg PO BID PRN #60 capsule 11/04/24 [Rx] Ibuprofen [Motrin] 600 mg PO Q6HR PRN #30 tab 11/04/24 [Rx] oxyCODONE HCL [Roxicodone] 5 mg PO Q6HR PRN 3 Days #12 tab 11/04/24 [Rx] Follow up Appointment(s)/Referral(s): Sanjay Ibarra MD [STAFF PHYSICIAN] - 11/20/24 2:45 pm (12/17/24 @ 1:30 PM) Activity/Diet/Wound Care/Special Instructions: Instructions 1. Do not begin any exercise program for 3 weeks. 2. Do not resume sexual relations for 6 weeks or longer if uncomfortable. 3. You may take tub baths or showers at any time. 4. You may use tampons if desired after 6 weeks. 5. Keep any areas repaired with stitches clean and dry. 6. If you are not nursing, wear a good fitting, supportive bra during the day and limit fluid intake for at least 1 week to prevent breast engorgement. 7. Call the office, , within the next week to make appointment for your 6 week checkup if it has not already been made. 8. Report any of the following occurrences to the doctor promptly: a. Heavy, excessive bleeding b. Chills, fever c. Burning or frequency of urination d. Pain or redness and breasts if nursing e. Increasing pain or swelling of vulva (stitches). In addition to the above instructions, the following additional should be followed: 1. No heavy lifting or straining (exercising) until after 6 week checkup. 2. Keep abdominal incision clean and dry: You may wear a dressing if more comfortable. 3. Make office appointment for 2 weeks after delivery date. Discharge Disposition: HOME SELF-CARE
== END 2024-11-04 14:15 | disposition home or self-care (01) | DRG 788 ==
LOC: 4FBP 10:10
PROVIDERS: ADMIT Obstetrics & Gynecology; ATTEND Obstetrics & Gynecology
PROC: 10D00Z1 Extraction of Products of Conception, Low, Open Approach (ICD-10-PCS; principal; 2024-11-02 12:00)
DX: O34.211 Maternal care for low transverse scar from previous cesarean delivery (principal); L29.9 Pruritus, unspecified; O24.424 Gestational diabetes mellitus in childbirth, insulin controlled; O99.73 Diseases of the skin and subcutaneous tissue complicating the puerperium; O36.60X0 Maternal care for excessive fetal growth, unspecified trimester, not applicable or unspecified; O99.72 Diseases of the skin and subcutaneous tissue complicating childbirth; Z37.0 Single live birth; L91.0 Hypertrophic scar; Z79.82 Long term (current) use of aspirin; Z3A.38 38 weeks gestation of pregnancy
CPT/HCPCS: 85025; 86850; 86900; 86901